=== PATIENT | male | born 1955 ===

== ENCOUNTER 2017-10-31 07:11 | Emergency (ER) | payer OTHER ==
[2017-10-31 07:43] VITALS: TEMP 98.5
[2017-10-31] MEDS ORDERED: Sodium Chloride 0.9% 1,000 ML IV STA (07:59)
[2017-10-31] MEDS ORDERED: Morphine 4 mg/ml ISec IVP STA (07:59)
--- NOTE | 2017-10-31 07:59 | ED PDOC ---
Arrival/HPI - General Chief Complaint: Flu-like Symptoms Time Seen by Provider: 10/31/17 07:58 Historian: Patient - History of Present Illness Narrative History of Present Illness (Text): 10/31/17 08:00 A 62 year old male, whose past medical history includes hernia surgery, presents to the emergency department complaining of body aches for 3 days. Patient notes also experiencing diarrhea which began 2 days ago, 1 episode of vomiting yesterday, and appetite changes causing significant weight loss. Patient reports having similar symptoms in the past long time ago. Patient denies any history of GI bleed or blood transfusion. Also, patient mentions he is a former smoker and drinks alcohol weekly (last drink was 11 days ago). No PMD 10/31/17 14:01 pt denied yeh, no chills/sweats, no cp/sob/palpitations, no significant abd pain , no urinary changes, no rashes pt denied other complaints pt is here for further eval. Time/Duration: < week Symptom Onset: Gradual Symptom Course: Worsening Severity Level: 3 Activities at Onset: Rest Context: Home Past Medical History - Provider Review Nursing Documentation Reviewed: Yes - Travel History Have you recently traveled outside [place] w/in the past 3 mons?: No - Past History Past History: No Previous - Infectious Disease Hx of Infectious Diseases: None - Psychiatric Hx Substance Use: No - Surgical History Other/Comment: Hernia Family/Social History - Physician Review Nursing Documentation Reviewed: Yes Family/Social History: No Known Family HX Smoking Status: Light Smoker < 10 Cigarettes Daily Hx Alcohol Use: Yes Frequency of alcohol use: Socially Hx Substance Use: No Hx Substance Use Treatment: No Allergies/Home Meds Allergies/Adverse Reactions: Allergies No Known Allergies Allergy (Verified 10/31/17 07:31) Review of Systems - Physician Review All systems were reviewed & negative as marked: Yes - Review of Systems Constitutional: Weight Change (due to appetite changes) Gastrointestinal: Diarrhea (for 2 days), Vomiting (1 episode yesterday), Appetite Changes Musculoskeletal: Myalgias (for 3 days) Physical Exam Vital Signs Reviewed: Yes Vital Signs Temp Pulse Resp BP Pulse Ox 10/31/17 11:19 91 H 17 136/86 100 10/31/17 09:19 103 H 17 123/78 99 10/31/17 07:43 98.5 F 97 H 18 129/84 100 Temperature: Afebrile Blood Pressure: Normal Pulse: Regular Respiratory Rate: Normal Appearance: Positive for: Well-Appearing, Uncomfortable, Other (NAD, resting in bed, alert/awake, GCS = 15, oriented x 3) Pain Distress: None Mental Status: Positive for: Alert and Oriented X 3 - Systems Exam Head: Present: Atraumatic, Normocephalic, Other (mild bi-temporal wasting) Pupils: Present: PERRL, Other (visual field intact b/l, no photophobia, sclera anicteric) Extroacular Muscles: Present: EOMI Conjunctiva: Present: Normal Ears: Present: Normal Mouth: Present: Moist Mucous Membranes Pharnyx: Present: Normal Neck: Present: Normal Range of Motion, Trachea Midline. No: MIDLINE TENDERNESS Respiratory/Chest: Present: Clear to Auscultation, Good Air Exchange. No: Respiratory Distress, Accessory Muscle Use Cardiovascular: Present: Regular Rate and Rhythm, Normal S1, S2. No: Murmurs Abdomen: Present: Normal Bowel Sounds. No: Tenderness, Distention, Peritoneal Signs, Other (no lesions) Rectal: Present: Other (negative guaic; NO gross blood noted, no lesions/ ulcerations/fistulas noted rectally; no rectal masses noted) Back: Present: Normal Inspection. No: CVA Tenderness, Midline Tenderness Upper Extremity: Present: Normal Inspection, Normal ROM, NORMAL PULSES, Neurovascularly Intact. No: Cyanosis, Edema Lower Extremity: Present: Normal Inspection, NORMAL PULSES, Normal ROM, Neurovascularly Intact. No: Edema Neurological: Present: GCS=15, CN II-XII Intact, Speech Normal Skin: Present: Warm, Dry, Normal Color, Other (cap refill ~ 1 sec, no ulcerations, no petechiae). No: Rashes Psychiatric: Present: Alert, Oriented x 3, Normal Insight, Normal Concentration Medical Decision Making ED Course and Treatment: 10/31/17 08:03 Impression: 62 year old male with body aches, diarrhea, 1 episode of vomiting, decreased appetite, and significant weight loss. Plan: -- EKG -- Abd/Pelvis CT -- Chest X-ray -- Labs -- Pepcid -- Morphine -- Zofran -- IV Fluids -- Urinalysis -- Venous Blood Gas -- Reassess and disposition Progress Notes: 10/31/2017 11:32 Abd/Pelvis CT FINDINGS: LOWER THORAX: No visible consolidation, pleural effusion, or pneumothorax. LIVER: Unremarkable. GALLBLADDER AND BILE DUCTS: Unremarkable. PANCREAS: Unremarkable. SPLEEN: 9 mm probable splenule. Otherwise unremarkable. ADRENALS: Unremarkable. KIDNEYS AND URETERS: The kidneys enhance symmetrically. No hydronephrosis or obstructing calculus identified. 9 mm and 10 mm left renal hypodense lesion, possibly cyst. VASCULATURE: No aortic aneurysm. BOWEL: Stomach is nondistended. Lack of oral contrast limits evaluation for bowel pathology. Bowel loops appear within normal limits of caliber without evidence of obstruction. APPENDIX: The appendix is not clearly identified. No secondary signs of acute appendicitis identified. PERITONEUM: No significant free fluid. No definite free air. LYMPH NODES: No bulky adenopathy identified. BLADDER: Unremarkable. REPRODUCTIVE: Unremarkable. BONES: No acute osseous abnormality is detected. OTHER FINDINGS: None. IMPRESSION: No acute findings identified. Additional findings as above. Dictator: Pamela Hester MD 10/31/2017 12:40 Chest X-ray IMPRESSION: No active pulmonary disease. Dictator: Fallon Lou MD 10/31/17 13:54 pt is doing well pt tolerated po well pt is not in any distress pt is made aware of his medical results pt is encouraged fluids pt is encouraged outpt f/u pt will be discharged home Re-evaluation Time: 13:00 Reassessment Condition: Improved - Lab Interpretations Lab Results: 10/31/17 08:17 10/31/17 08:17 Lab Results 10/31/17 11:30: Urine Color Yellow, Urine Appearance Clear, Urine pH 5.5, Ur Specific [place] 1.010, Urine Protein 30 H, Urine Glucose (UA) Negative, Urine Ketones 15 H, Urine Blood Negative, Urine Nitrate Negative, Urine Bilirubin Negative, Urine Urobilinogen 0.2, Ur Leukocyte Esterase Negative, Urine RBC 5 - 10, Urine WBC 0 - 2, Ur Epithelial Cells 1 - 3, Urine Bacteria Mod 10/31/17 08:17: pO2 39, VBG pH 7.32, VBG pCO2 52.0, VBG HCO3 26.8, VBG Total CO2 28.4 H, VBG O2 Sat (Calc) 74.7 H, VBG Base Excess -0.1 L, VBG Potassium 4.3 , Sodium 131.0 L, Chloride 99.0, Glucose 108, Lactate 1.5, FiO2 21.0, Venous Blood Potassium 4.3 10/31/17 08:17: Alcohol, Quantitative < 10 10/31/17 08:17: Ammonia < 9 L 10/31/17 08:17: Sodium 135, Chloride 99, Potassium 4.4, Carbon Dioxide 24, Anion Gap 16, BUN 30 H, Creatinine 1.1, Est GFR ( Amer) > 60, Est GFR ( Non-Af Amer) > 60, Random Glucose 103, Calcium 9.6, Total Bilirubin 0.8, AST 56 , ALT 36, Alkaline Phosphatase 66, Total Protein 8.1, Albumin 4.4, Globulin 3.7 , Albumin/Globulin Ratio 1.2, Lipase 253 10/31/17 08:17: PT 13.5 H, INR 1.17 H, APTT 34.7 10/31/17 08:17: WBC 4.5, RBC 3.86, Hgb 13.0 L, Hct 39.1 L, MCV 101.3, MCH 33.7, MCHC 33.2, RDW 13.2, Plt Count 209, MPV 9.6, Gran % 63.4, Lymph % (Auto) 23.8, [place] % (Auto) 12.6 H, Eos % (Auto) 0.0 L, Baso % (Auto) 0.2, Gran # 2.82, Lymph # 1.1 L, [place] # 0.6, Eos # 0.0, Baso # 0.01 I have reviewed the lab results: Yes Interpretation: All labs normal - RAD Interpretation Radiology Orders: 10/31/17 08:00 ABD & PELVIS IV CONTRAST ONLY [CT] Stat CHEST TWO VIEWS (PA/LAT) [RAD] Stat Glacing Machine Tender: Radiologist - EKG Interpretation EKG Interpretation (Text): 10/31/17 13:56 NSR at 100 bpm, normal axis, no ectopy, voltage criteria LVH, non-specific st-t changes, ABNL EKG; no old ekg to compare with 10/31/17 14:05 Interpreted by ED Physician: Yes Type: 12 lead EKG Comparison: No previous EKG avail. - Medication Orders Current Medication Orders: Discontinued Medications Famotidine (Pepcid) 20 mg IVP STAT STA Stop: 10/31/17 08:00 Last Admin: 10/31/17 08:22 Dose: 20 mg IVP Administration Document 10/31/17 08:22 RICARDO (Rec: 10/31/17 08:22 RICARDO GRIFFITH-PC) Charges for Administration # of IVP Administrations 1 Sodium Chloride (Sodium Chloride 0.9%) 1,000 mls @ 1,000 mls/hr IV .Q1H STA Stop: 10/31/17 08:58 Last Admin: 10/31/17 08:21 Dose: 1,000 mls/hr eMAR Start Stop Document 10/31/17 08:21 RICARDO (Rec: 10/31/17 08:22 RICARDO GRIFFITH-PC) Intravenous Solution Start Date 10/31/17 Start Time 08:21 End Date 10/31/17 End time 09:21 Total Infusion Time 60 Morphine Sulfate (Morphine) 4 mg IVP STAT STA Stop: 10/31/17 08:00 Last Admin: 10/31/17 08:20 Dose: 4 mg MAR Pain Assessment Document 10/31/17 08:20 RICARDO (Rec: 10/31/17 08:21 RICARDO GRIFFITH-PC) Pain Reassessment Is this a pain reassessment? No Sleep Is patient sleeping during reassessment? No Presence of Pain Presence of Pain Yes IVP Administration Document 10/31/17 08:20 RICARDO (Rec: 10/31/17 08:21 RICARDO GRIFFITH-PC) Charges for Administration # of IVP Administrations 1 Ondansetron HCl (Zofran Inj) 4 mg IVP STAT STA Stop: 10/31/17 08:00 Last Admin: 10/31/17 08:22 Dose: 4 mg IVP Administration Document 10/31/17 08:22 RICARDO (Rec: 10/31/17 08:22 RICARDO GRIFFITH-PC) Charges for Administration # of IVP Administrations 1 - Scribe Statement The provider has reviewed the documentation as recorded by the Katie Simons Provider Scribe Attestation: All medical record entries made by the Scribe were at my direction and personally dictated by me. I have reviewed the chart and agree that the record accurately reflects my personal performance of the history, physical exam, medical decision making, and the department course for this patient. I have also personally directed, reviewed, and agree with the discharge instructions and disposition. Disposition/Present on Arrival - Present on Arrival Any Indicators Present on Arrival: No History of DVT/PE: No History of Uncontrolled Diabetes: No Urinary Catheter: No History of Decub. Ulcer: No History Surgical Site Infection Following: None - Disposition Have Diagnosis and Disposition been Completed?: Yes Diagnosis: Diarrhea, Vomiting, Weakness Disposition: HOME/ ROUTINE Disposition Time: 13:57 Patient Plan: Discharge Patient Problems: Current Active Problems Problem Status Onset Diarrhea Acute Vomiting Acute Weakness Acute Condition: STABLE Discharge Instructions (ExitCare): Dehydration (ED), Acute Nausea and Vomiting (ED), Acute Diarrhea (ED), Weakness (ED) Print Language: YAKUT Additional Instructions: Make sure to see your doctor in 1-2 days DRINK PLENTY OF FLUIDS BLAND DIET IS ENCOURAGED take your medications as prescribed RETURN TO ED IF worse pain, cant breath, persistent vomiting, high fever >101- 102 for hours, altered behavior, unable to urinate, heavy/persistent bleeding, passing out, chest pain, or other medical emergencies Prescriptions: Ondansetron ODT [Zofran ODT] 4 mg PO TID #12 odt Referrals: PCP,NO [Primary Care Provider] - [place] up [place] [facility] [place] [facility] [place] - Follow up with primary Forms: [employer] (E[place]an)
[2017-10-31 08:27] LABS: BASO # 0.01 K/mm3 (0.0-2.0); BASO % 0.2 % (0.0-3.0); GRAN # 2.82 (1.4-6.5); GRAN % 63.4 % (50.0-68.0); LYMPH # 1.1 (1.2-3.4); LYMPH % 23.8 % (22.0-35.0); MEAN CELL VOLUME 101.3 fl (80.0-105.0); MEAN CORPUSCULAR HEMOGLOBIN 33.7 pg (25.0-35.0); MEAN CORPUSCULAR HGB CONC 33.2 g/dl (31.0-37.0); MEAN PLATELET VOLUME 9.6 fl (7.0-11.0); MONO # 0.6 (0.1-0.6); MONO % 12.6 % (1.0-6.0); RBC 3.86 10^6/uL (3.5-6.1); RED CELL DISTRIBUTION WIDTH 13.2 % (11.5-14.5); VENOUS BLOOD GAS BASE EXCESS -0.1 mmol/L (0.0-2.0); VENOUS BLOOD GAS PO2 39 mm/Hg (30-55); VENOUS BLOOD PH 7.32 (7.32-7.43); WHITE BLOOD COUNT 4.5 10^3/ul (4.5-11.0)
[2017-10-31 08:44] LABS: INR 1.17 (0.93-1.08); PARTIAL THROMBOPLASTIN TIME 34.7 Seconds (25.1-36.5); PROTHROMBIN TIME 13.5 SECONDS (9.4-12.5)
[2017-10-31 08:45] LABS: ALB/GLOB RATIO 1.2 (1.1-1.8); ALBUMIN 4.4 g/dL (3.0-4.8); ALT/SGPT 36 U/L (7-56); AST/SGOT 56 U/L (17-59); BLOOD UREA NITROGEN 30 mg/dL (7-21); CALCIUM 9.6 mg/dL (8.4-10.5); GFR AFRICAN-AMERICAN > 60; GFR NON-AFRICAN AMERICAN > 60; LIPASE 253 U/L (23-300)
[2017-10-31] MEDS ORDERED: Iohexol 350 MG/100 ML VIAL ONE (09:13)
--- NOTE | 2017-10-31 11:33 | CT ---
PROCEDURE: CT Abdomen and Pelvis with contrast HISTORY: vomiting, black stool/diarrhea x 3-4 days COMPARISON: None available. TECHNIQUE: Contrast dose: 100 cc Omnipaque 350 Radiation dose: Total exam DLP = 191.26 mGy-cm. This CT exam was performed using one or more of the following dose reduction techniques: Automated exposure control, adjustment of the mA and/or kV according to patient size, and/or use of iterative reconstruction technique. FINDINGS: LOWER THORAX: No visible consolidation, pleural effusion, or pneumothorax. LIVER: Unremarkable. GALLBLADDER AND BILE DUCTS: Unremarkable. PANCREAS: Unremarkable. SPLEEN: 9 mm probable splenule. Otherwise unremarkable. ADRENALS: Unremarkable. KIDNEYS AND URETERS: The kidneys enhance symmetrically. No hydronephrosis or obstructing calculus identified. 9 mm and 10 mm left renal hypodense lesion, possibly cyst. VASCULATURE: No aortic aneurysm. BOWEL: Stomach is nondistended. Lack of oral contrast limits evaluation for bowel pathology. Bowel loops appear within normal limits of caliber without evidence of obstruction. APPENDIX: The appendix is not clearly identified. No secondary signs of acute appendicitis identified. PERITONEUM: No significant free fluid. No definite free air. LYMPH NODES: No bulky adenopathy identified. BLADDER: Unremarkable. REPRODUCTIVE: Unremarkable. BONES: No acute osseous abnormality is detected. OTHER FINDINGS: None. IMPRESSION: No acute findings identified. Additional findings as above.
[2017-10-31 11:47] LABS: PH,URINE 5.5 (4.7-8.0); URINE BILIRUBIN NEGATIVE (NEGATIVE); URINE BLOOD NEGATIVE (NEGATIVE); URINE GLUCOSE (UA) NEGATIVE (NEGATIVE); URINE LEUKOCYTE ESTERASE NEGATIVE Leu/uL (NEGATIVE); URINE NITRATE NEGATIVE (NEGATIVE); URINE PROTEIN 30 mg/dL (<30 mg/dL); URINE UROBILINOGEN 0.2 E.U./dL (<1 E.U./dL)
[2017-10-31 11:49] LABS: URINE APPEARANCE CLEAR (CLEAR); URINE COLOR YELLOW (YELLOW)
[2017-10-31 12:12] LABS: URINE WBC 0 - 2 /hpf (0-6)
[2017-10-31 12:13] LABS: URINE BACTERIA MOD (NEG)
--- NOTE | 2017-10-31 12:41 | RAD ---
HISTORY: COMPARISON: None TECHNIQUE: Chest PA and lateral FINDINGS: LINES AND TUBES: None. LUNG AND PLEURA: The lungs are well inflated and clear. HEART AND MEDIASTINUM: The heart is not enlarged. The hilar and mediastinal contours are within normal limits. SKELETAL STRUCTURES: The bony structures are within normal limits for the patient's age. VISUALIZED UPPER ABDOMEN: Normal. OTHER FINDINGS: None. IMPRESSION: No active pulmonary disease.
[2017-10-31 14:37] VITALS: BP 135/82; PULSE 89; RESP 18; O2SAT 98
--- NOTE | 2017-10-31 18:04 | CARD ---
APPROVED REPORT EKG Measurement Heart [id number] <Conclusion> Poor data quality, interpretation may be adversely affected Normal sinus rhythm Possible Left atrial enlargement Left ventricular hypertrophy Abnormal ECG
== END 2017-10-31 14:10 | disposition home or self-care (01) ==
LOC: ED 07:11
DX: R53.1 Weakness (principal); R11.10 Vomiting, unspecified; R19.7 Diarrhea, unspecified
CPT/HCPCS: 71046; 74177; 80053; 80320; 81001; 82140; 82803; 83690; 85025; 85610; 85730; 93005; 96361; 96374; 96375; 99285; J2270; J2405; J7040; Q9967